=== PATIENT | female | born 1990 | race Hispanic/Latino ===

== ENCOUNTER 2019-10-12 18:37 | Inpatient (IN) | payer BC, MEDICAID ==
[~2019-10-12] VITALS: Ht 175.3 cm; Wt 102.1 kg
[~2019-10-12 18:37] MED LIST: PREN-94 PO
[2019-10-12] MEDS ORDERED: LACTATED RINGERS 1000ML 1,000 ML IV PRN (19:15)
[2019-10-12] MEDS ORDERED: ROPIVACAINE 0.2% 100ML VIAL 100 ML EP SCH (19:30)
[2019-10-12] MEDS ORDERED: AMPICILLIN 2GM+NS 100ML 100 ML IV SCH (19:30)
[2019-10-12] MEDS ORDERED: MORPHINE SULFATE 10 MG/ML 1ML SYG IM PRN (19:30)
[2019-10-12] MEDS ORDERED: EPHEDRINE SULFATE 50 MG/ML AMPULE IVP PRN (19:30)
[2019-10-12] MEDS ORDERED: NALOXONE HCL 0.4 MG/1 ML ML IV PRN (19:30)
[2019-10-12] MEDS ORDERED: LACTATED RINGERS 500 ML 500 ML IV PRN (19:30)
[2019-10-12 19:45] LABS: APPEARANCE,URINE Clear (CLEAR); BILIRUBIN,URINE Negative (NEGATIVE); COLOR,URINE Yellow (YELLOW); GLUCOSE, URINE (UA) TRACE mg/dL (NEGATIVE); KETONES,URINE Trace mg/dL (NEGATIVE); LEUKOCYTE ESTERASE ,URINE Moderate (NEGATIVE); NITRATE,URINE Negative (NEGATIVE); OCCULT BLOOD,URINE Negative (NEGATIVE); PROTEIN,URINE Negative (NEGATIVE); UROBILINOGEN,URINE 0.2 mg/dL (0.2-1.0)
[2019-10-12] MEDS ORDERED: MORPHINE SULFATE 10 MG/ML 1ML VIAL IM PRN (19:45)
[2019-10-12] MEDS ORDERED: OXYTOCIN-LR 20 UNITS/1000 ML 1,000 ML IV SCH (19:45)
[2019-10-12 19:54] LABS: BACTERIA,URINE Rare /HPF (None Seen); RBC,URINE 0-1 /HPF (0-1); YEAST,URINE BUDDING Few /HPF (None Seen)
[2019-10-12 19:55] LABS: SQUAMOUS EPITHELIAL CELL,UR Few /HPF (0-2)
[2019-10-12 21:07] LABS: HEMATOCRIT 35.9 % (36-48); MEAN CORPUSCULAR HEMOGLOBIN 31.9 pg (27.0-33.0); MEAN CORPUSCULAR VOLUME 93.7 fL (79-99); RED BLOOD CELL COUNT(AUTO) 3.83 MIL/uL (4.00-5.50); RED CELL DISTRIBUTION WIDTH 13.1 % (11.0-15.5); WHITE BLOOD COUNT (AUTO) 8.9 K/uL (4.8-10.8)
[2019-10-12 21:55] VITALS: BP 128/71
[2019-10-13] MEDS: AMPICILLIN 1GM+NS 50ML 50 ML IV SCH ×3 (01:09→23:30)
[2019-10-13] MEDS ORDERED: METHYLERGONOVINE MALEATE 0.2 MG/1 ML ML ONE (14:05)
[2019-10-13] MEDS ORDERED: DIPH,PERTUSS(ACELL),TET VAC/PF 0.5 ML VIAL IM PRN (14:15)
[2019-10-13] MEDS ORDERED: OXYTOCIN-LR 20 UNITS/1000 ML 1,000 ML IV SCH (14:15)
[2019-10-13] MEDS ORDERED: BENZOCAINE/LANOLIN/ALOE VERA 60 ML AEROSOL TP PRN (14:15)
[2019-10-13] MEDS ORDERED: ACETAMINOPHEN-CODEINE 300/30MG TAB PO PRN (14:15)
[2019-10-13] MEDS ORDERED: IBUPROFEN 600 MG TABLET PO PRN (14:15)
[2019-10-13] MEDS ORDERED: LANOLIN 30GM OINTMENT TP PRN (14:15)
[2019-10-13] MEDS ORDERED: WITCH HAZEL 1 PAD TP PRN (14:15)
[2019-10-13 16:36] VITALS: BP 127/59
[2019-10-13 19:30] VITALS: BP 117/68
[2019-10-13] MEDS: DOCUSATE SODIUM 100 MG CAP PO SCH (21:16)
[2019-10-13 23:38] VITALS: BP 110/62
[2019-10-14] MEDS: AMPICILLIN 1GM+NS 50ML 50 ML IV SCH ×2 (03:30→03:49)
[2019-10-14 03:57] VITALS: BP 112/68
[2019-10-14 07:28] VITALS: BP 107/63
--- NOTE | 2019-10-14 07:30 | NUR ---
PATIENT ASSESSED AT THIS TIME AND BABY WAS TAKEN TO NURSERY. PATIENT STATES BABY IS PENDING A CIRCUMCISION THIS A.M. ASSESSMENT ON PATIENT DONE AND DENIES PAIN AT THIS TIME. INFORMED PATIENT THAT MOTRIN WILL BE GIVEN AFTER BREAKFAST FOR UTERINE CRAMPING AND GENERALIZED BODY ACHES AFTER DELIVERY. INDICATED GETTING UTERINE CRAMPING WHILE AND EXPLAINED TO PATIENT WHY CAUSES UTERINE CRAMPING.
[2019-10-14 08:13] LABS: HEPATITIS Bs ANTIGEN SCREEN P Negative (Negative)
--- NOTE | 2019-10-14 09:00 | NUR ---
DR. TENA ROUNDED AND SPOKE TO PATIENT ON NEED TO FOLLOW UP IN HER OFFICE IN ONE WEEK. FOLLOW UP APPOINTMENT WAS MADE FOR October AT 3:30PM.
[2019-10-14] MEDS: DOCUSATE SODIUM 100 MG CAP PO SCH (09:16)
[2019-10-14 11:08] VITALS: BP 95/54
--- NOTE | 2019-10-14 12:15 | NUR ---
DISCHARGE INSTRUCTIONS GIVEN AND SCRIPT FOR MOTRIN ISSUED TO PATIENT. DENIES PAIN AT THIS TIME AND CIRCUMCISION WAS DONE ON BABY AND IS DUE TO VOID. PATIENT TOLERATING ACTIVITY WELL AND BONDING WELL WITH BABY. VERBALIZED UNDERSTANDING INSTRUCTIONS GIVEN.
--- NOTE | 2019-10-14 14:35 | NUR ---
PATIENT WAS TAKEN VIA W/C CARRYING BABY IN ARMS TO FAMILY VEHICLE AND WERE DISCHARGED TO HER SPOUSE. PATIENT STABLE AND BABY IS STABLE.
== END 2019-10-14 14:35 | disposition home or self-care (01) | DRG 807 ==
LOC: LDH 18:37 → WSH 10-13 16:35 → PREOBSVTOIN 10-20 16:43
PROC: 10E0XZZ Delivery of Products of Conception, External Approach (ICD-10-PCS; principal; 2019-10-13)
PROC: 10907ZC Drainage of Amniotic Fluid, Therapeutic from Products of Conception, Via Natural or Artificial Opening (ICD-10-PCS; 2019-10-13)
PROC: 3E0R3BZ Introduction of Anesthetic Agent into Spinal Canal, Percutaneous Approach (ICD-10-PCS; 2019-10-13)
PROC: 00HU33Z Insertion of Infusion Device into Spinal Canal, Percutaneous Approach (ICD-10-PCS; 2019-10-13)
PROC: 3E0234Z Introduction of Serum, Toxoid and Vaccine into Muscle, Percutaneous Approach (ICD-10-PCS; 2019-10-13)
DX: O69.81X0 Labor and delivery complicated by cord around neck, without compression, not applicable or unspecified (principal); Z37.0 Single live birth; O99.824 Streptococcus B carrier state complicating childbirth; O71.82 Other specified trauma to perineum and vulva; Z3A.39 39 weeks gestation of pregnancy; Z86.32 Personal history of gestational diabetes; Z23 Encounter for immunization
CPT/HCPCS: 36415; 81001; 82947; 85027; 86592; 86850; 86900; 86901; 87088; 87340; A4314; G0378; J0290; J2210; J2590; J2795; J7120